=== PATIENT | male | born 2000 | race Caucasian/White ===

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

== ENCOUNTER → 2019-04-25 | Outpatient (CLI) | payer OTHER ==
[~2019-04-25] MED LIST changes: +IBUP-1022 PO; -IBUP600T26 PO
[2019-04-25 10:45] LABS: HEMATOCRIT 44.2 % (42.0-52.0); HEMOGLOBIN 14.5 g/dl (13.5-17.5); MEAN CORPUSCULAR HEMOGLOBIN 30.2 pg (27.0-33.0); MEAN CORPUSCULAR HGB CONC 32.8 g/dl (32.0-36.5); MEAN CORPUSCULAR VOLUME 92.1 fl (80.0-96.0); PLATELET COUNT, AUTOMATED 211 10^3/uL (150-450); WHITE BLOOD COUNT 7.2 10^3/uL (4.0-10.0)
[2019-04-25 12:14] LABS: ALBUMIN 4.1 GM/DL (3.2-5.2); ALT/SGPT 21 U/L (12-78); BILIRUBIN,TOTAL 0.5 MG/DL (0.2-1.0); BLOOD UREA NITROGEN 16 MG/DL (7-18); CALCIUM LEVEL 9.1 MG/DL (8.5-10.1); CARBON DIOXIDE LEVEL 30 MEQ/L (21-32); CHLORIDE LEVEL 105 MEQ/L (98-107); CHOLESTEROL LEVEL 127 MG/DL (<200); GLUCOSE, FASTING 85 MG/DL (70-100); HDL CHOLESTEROL 46 MG/DL (>40); LDL CHOLESTEROL 67 MG/DL (<100); NON-HDL-C 81 MG/DL; SODIUM LEVEL 140 MEQ/L (136-145); THYROID STIMULATING HORMONE 0.891 uIU/ML (0.463-3.98); THYROXINE (T4) 8.1 UG/DL (6.0-11.6); TRIGLYCERIDES LEVEL 68 MG/DL (<150)
--- NOTE | 2019-04-25 14:34 | REP ---
REASON: Fatigue. FINDINGS: The superior mediastinal structures are midline. The cardiac silhouette is unremarkable in size, shape, and position. The diaphragmatic surfaces of the lungs are regular, and the costophrenic angles are clear. The pulmonary krishna are clear. The imaged osseous structures are intact. IMPRESSION: There is no acute cardiopulmonary disease. Electronically Signed by Hernán Crespo DO 04/25/2019 02:36 P
== END ==
LOC: M LAB 09:11
PROVIDERS: ATTEND Family Medicine
DX: R53.83 Other fatigue (principal); E03.9 Hypothyroidism, unspecified; D64.9 Anemia, unspecified

== ENCOUNTER → 2019-04-25 | Outpatient (CLI) | payer OTHER ==
--- NOTE | 2019-04-25 18:37 | ECGEPIP ---
[facility] Test Date: 2019-04-25 Pat Name: MEENA SEO Department: Room: - Gender: Male Fountain Clerk: JAYA : 2000 Requested By: Viet Webb Order Number: [id number] Reading MD: Katya Finley Measurements Intervals [place] Rate: 53 P: 44 NE: 172 QRS: 6 QRSD: 96 T: 15 QT: 408 QTc: 386 Interpretive Statements SINUS BRADYCARDIA WITH SINUS ARRHYTHMIA NO PRIOR Electronically Signed on 04-25-2019 18:37:22 EDT by Katya Finley
== END ==
LOC: M EKG 09:17
PROVIDERS: ATTEND Dentist Oral and Maxillofacial Surgery
DX: R07.9 Chest pain, unspecified (principal); M26.213 Malocclusion, Angle's class III

== ENCOUNTER → 2021-01-01 | Outpatient (CLI) | payer OTHER ==
[~2021-01-01] MED LIST changes: +CYCL-707 PO; -CYCL10TA PO
[2021-01-01 14:47] LABS: HEMATOCRIT 42.2 % (42.0-52.0); HEMOGLOBIN 13.9 g/dl (13.5-17.5); MEAN CORPUSCULAR HEMOGLOBIN 30.3 pg (27.0-33.0); MEAN CORPUSCULAR HGB CONC 32.9 g/dl (32.0-36.5); MEAN CORPUSCULAR VOLUME 91.9 fl (80.0-96.0); PLATELET COUNT, AUTOMATED 204 10^3/uL (150-450); RED BLOOD COUNT 4.59 10^6/uL (4.30-6.10); WHITE BLOOD COUNT 5.2 10^3/uL (4.0-10.0)
[2021-01-01 15:28] LABS: ALBUMIN 4.4 GM/DL (3.2-5.2); ALT/SGPT 24 U/L (12-78); BILIRUBIN,TOTAL 0.8 MG/DL (0.2-1.0); BLOOD UREA NITROGEN 15 MG/DL (7-18); CALCIUM LEVEL 9.2 MG/DL (8.5-10.1); CARBON DIOXIDE LEVEL 31 MEQ/L (21-32); CHLORIDE LEVEL 103 MEQ/L (98-107); CHOLESTEROL LEVEL 129 MG/DL (<200); CHOLESTEROL RISK RATIO 1.791 (<5); CREATININE FOR GFR 0.77 MG/DL (0.70-1.30); GLOMERULAR FILTRATION RATE > 60.0 (>60); GLUCOSE, FASTING 87 MG/DL (70-100); HDL CHOLESTEROL 72 MG/DL (>40); IRON (FE) 105 UG/DL (65-175); LDL CHOLESTEROL 45 MG/DL (<100); NON-HDL-C 57 MG/DL; PERCENT SATURATION 32.6 % (19.7-50.0); POTASSIUM SERUM 3.9 MEQ/L (3.5-5.1); SODIUM LEVEL 139 MEQ/L (136-145); THYROID STIMULATING HORMONE 0.934 uIU/ML (0.358-3.740); TOTAL IRON BINDING CAPACITY 322 UG/DL (250-450); TOTAL PROTEIN 7.2 GM/DL (6.4-8.2); TRIGLYCERIDES LEVEL 62 MG/DL (<150)
[2021-01-01 15:30] LABS: TOTAL 25(OH) VITAMIN D 19.5 NG/ML (30.0-100.0)
== END ==
LOC: M LAB 14:14
PROVIDERS: ATTEND Family Medicine
DX: R53.83 Other fatigue (principal); D64.9 Anemia, unspecified

== ENCOUNTER 2021-03-16 07:44 | Emergency (ER) | payer OTHER ==
[~2021-03-16] VITALS: Ht 175.3 cm; Wt 65.9 kg
[2021-03-16 07:44] VITALS: BP 141/84
[2021-03-16] MEDS ORDERED: NAPROXEN 250 MG TAB PO ONE (08:10)
--- NOTE | 2021-03-16 08:13 | REP ---
INDICATION: Pain after lifting COMPARISON: None. TECHNIQUE: Internal rotation, external rotation, and Y view. FINDINGS: No acute fracture or dislocation. The acromioclavicular and glenohumeral joints are intact. No periarticular calcifications or degenerative changes are appreciated. Sub acromial space is normal. Surrounding soft tissues are unremarkable. IMPRESSION: Normal right shoulder radiographs. <Electronically signed by Holden Oswald > 03/16/21 [id number]
== END 2021-03-16 08:55 | disposition home or self-care (01) ==
LOC: M ED 07:44
DX: S46.811A Strain of other muscles, fascia and tendons at shoulder and upper arm level, right arm, initial encounter (principal); X50.9XXA Other and unspecified overexertion or strenuous movements or postures, initial encounter; Y92.018 Other place in single-family (private) house as the place of occurrence of the external cause